=== PATIENT | male | born 1955 | race Caucasian/White ===

== ENCOUNTER → 2019-01-08 | Outpatient (CLI) | payer MEDICARE, BC ==
[~2019-01-08] MED LIST: COUMADIN
--- NOTE | 2019-01-08 15:30 | Diagnostic Imaging Report ---
EXAMINATION: CT scan of the chest without contrast. TECHNIQUE: Spiral CT images of the chest were performed from the lung apices to the level of the adrenal glands. No intravenous contrast was administered per referring physician request. Coronal and sagittal reformatted images were obtained. COMPARISON: CTA of the chest 09/02/2011 CLINICAL HISTORY:Dyspnea, low energy DISCUSSION: ABSENCE OF INTRAVENOUS CONTRAST DECREASES SENSITIVITY FOR DETECTION OF FOCAL LESIONS AND VASCULAR PATHOLOGY. LINES/TUBES: None. LUNGS AND AIRWAYS: Linear scar or atelectasis in the right middle lobe, lingula, and medial segments of the bilateral lower lobes. No airspace consolidation, gross fibrotic change, honeycombing, or suspicious mass lesion. Trachea, mainstem bronchi, and central lobar and segmental bronchi are patent. PLEURA: No pneumothorax or pleural effusions. HEART AND MEDIASTINUM: The thyroid gland is normal. Mild ectasia of the ascending thoracic aorta (4 cm),, unchanged compared to CTA 09/02/2011. Pulmonary outflow tract is of normal caliber. Heart size is normal without pericardial effusion. Atherosclerotic coronary artery and thoracic aortic calcifications. LYMPH NODES: No axillary, hilar, or mediastinal lymphadenopathy. ABDOMEN: Visualized portions of the liver, spleen, pancreas, adrenals are unremarkable. Very small sliding-type hiatal hernia unchanged. BONES AND SOFT TISSUES: No osseous destructive lesions. IMPRESSION: No acute thoracic CT abnormalities. Atherosclerotic vascular disease with stable mild ectasia of the ascending thoracic aorta (4 cm). Signed by: Dr. Raffi Ramos M.D. on 01/08/2019 3:27 PM
== END ==
LOC: CT 14:11
PROVIDERS: ATTEND Internal Medicine
DX: R06.00 Dyspnea, unspecified (principal); I50.32 Chronic diastolic (congestive) heart failure; I51.9 Heart disease, unspecified
CPT/HCPCS: 71250

== ENCOUNTER → 2019-01-28 | Outpatient (CLI) | payer MEDICARE, BC ==
--- NOTE | 2019-01-28 16:37 | Diagnostic Imaging Report ---
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 Acute onset SOB. Comparison: CT chest 01/08/2019 Discussion: Xenon-133 gas 10.9 mCi was administered via inhalation. Dynamic images of the lungs in the posterior projection were obtained through single breath, equilibrium, and washout phases. Distribution of tracer activity is irregular throughout the lungs. There are no segmental ventilatory defects. Washout of tracer is diffusely delayed with diffuse air trapping. Perfusion images of the lungs were obtained in multiple projections following intravenous administration of approximately 6.6 mCi of Tc-99m MAA. Distribution of tracer appears physiologic throughout the lungs. The contours of the lungs are well demarcated. There are no segmental perfusion defects of any size. The cardiomediastinal silhouette is unremarkable. Impression: 1. Normal perfusion lung scan. Scan findings represent a VERY LOW probability for acute pulmonary embolic disease based on the PIOPED II criteria. 2. Scan evidence of obstructive lung disease. 3. Normal perfusion lung scan excludes chronic thromboembolic pulmonary hypertension. Signed by: Dr. Eliz Maki M.D. on 01/28/2019 4:34 PM
== END ==
LOC: NM 13:51
PROVIDERS: ATTEND Internal Medicine Critical Care Medicine
DX: I27.82 Chronic pulmonary embolism (principal)
CPT/HCPCS: 78582; A9540; A9558

== ENCOUNTER → 2019-07-22 | Outpatient (CLI) | payer MEDICARE, BC ==
--- NOTE | 2019-07-22 17:43 | Diagnostic Imaging Report ---
Hepatobiliary Scan with Gallbladder Ejection Fraction Clinical information: RUQ pain x 3 weeks; worse when supine Report: The study was performed with patient in a right lateral decubitus position rather than supine. Patient experiences pain when lying done in supine position. Following intravenous administration of 6 millicuries of Tc-99m mebrofenin, dynamic images of the abdomen in the anterior projection were obtained through 60 minutes. Sincalide (CCK analog) 2.0 micrograms was administered intravenously over 30 minutes with additional imaging for determination of gallbladder ejection fraction. Perfusion to the liver is normal. Extraction of tracer from the blood pool by the liver parenchyma is normal. Tracer is seen promptly within the biliary tract. The gallbladder begins to fill by 5 minutes post-injection of tracer and fills adequately. Tracer is seen in the small bowel during the sincalide infusion. The gallbladder ejection fraction with administration of sincalide is 81% (normal greater than 40%). Impression: 1. Filling of the gallbladder excludes the diagnosis of acute cystic duct obstruction/acute cholecystitis. 2. Normal gallbladder ejection fraction of 81% does not support the clinical diagnosis of chronic cholecystitis/gallbladder dyskinesia. Signed by: Dr. Eliz Maki M.D. on 07/22/2019 5:40 PM
== END ==
LOC: NM 13:33
PROVIDERS: ATTEND Surgery
DX: R10.11 Right upper quadrant pain (principal)
CPT/HCPCS: 78227; A9537